=== PATIENT | male | born 1980 | race Two or more races ===

== ENCOUNTER 2022-11-15 10:22 | Emergency (ER) | payer OTHER ==
[2022-11-15 10:42] VITALS: BP 114/76; PULSE 71; RESP 17; TEMP 98; BMI 34.4
== END 2022-11-15 12:23 | disposition home or self-care (01) ==
LOC: JER 10:22
DX: R05.9 Cough, unspecified (principal); R09.81 Nasal congestion; U07.1 COVID-19
CPT/HCPCS: 0241U-QW; 99283-25